=== PATIENT | male | born 1965 | race Caucasian/White ===

== ENCOUNTER → 2019-08-22 | Outpatient (CLI) | payer BC, SELFPAY ==
[2016-05-03 11:46] VITALS: BMI 43.0
[2019-08-22 14:46] LABS: Bacteria 0 SEEN /hpf (None Seen); Red Blood Cells-Urine 0 SEEN /hpf (0-5); Squamous Epithelial Cells - UA 0 SEEN /hpf (0-5)
[2019-08-22 15:03] LABS: Color, Urine Yellow (Yellow); Glucose, Dipstick Normal (Normal); Ketone-Dipstick 5 mg/dl (Negative); Leukocyte Esterase-Dipstick 100 /ul (Negative); Nitrite-Dipstick Negative (Negative); Occult Blood-Urine 10 /ul (Negative); Protein-Dipstick 100 mg/dl (Negative); Urine Bilirubin Dipstick Negative (Negative); Urine Clarity Clear (Clear); Urine Urobilinogen 1 mg/dl (Normal)
[2019-08-22 15:20] LABS: Mucous, Urine RARE /hpf (<or=2+); White Blood Cells 0-5 SEEN /hpf (0-5)
[2019-08-22 15:21] LABS: Hyaline Cast 0-5 SEEN /lpf (0-5)
== END | disposition home or self-care (01) ==
LOC: LABSPEC 14:42
PROVIDERS: Referring Provider Urology; Visit Provider Urology
DX: R31.9 Hematuria, unspecified (principal)
CPT/HCPCS: 81001

== ENCOUNTER 2020-09-16 08:30 | Outpatient (RCR) | payer BC, SELFPAY ==
--- NOTE | 2020-08-23 08:37 | HP.PTEVAL_ITS ---
Patient's Visit Information SUJATHA CARVALHO Jr. is a 55 year old M referred to Physical Therapy by Dr. Sj Aguilar DO with a diagnosis of L5S1 HERNIATED DISC. Date of Evaluation: 08/23/20 Physical Therapist: Brenda Webber PT, Cert MDT - Visit Plan Frequency: 2-3x /Week Duration: 4-6 Weeks Plan: NO OVER HEAD PRESS OR TWISTING EXERCISES. POSTURE CORRECTION/STRENGTHENING, INSTRUCTION IN APPROPRIATE BODY MECHANICS AND ACTIVITY MODIFICATIONS. DLS STARTING WITH A NEUTRAL SPINE PROGRESSING ROM TOLERATED AND SLOWLY WORKING INTO WORK SIMULATION ACTIVITIES. ZIYAD LE ROM, STRETCHING AND STRENGTHENING. HEP INSTRUCTION. - Subjective Work/Leisure: [employer]. [employer]. HAS TO LIFT AND DRAG HOSES. CURRENTLY OFF WORK AND HAS BEEN OFF WORK SINCE MAY 2020. TENTATIVE RETURN TO WORK DATE IS 09/19/20. Disability: NO. Present symptoms: LEFT BUTTOCK PAIN, LEFT THIGH PAIN. NO LE NUMBNESS OR TINGLING. NO RIGHT LE SX'S. MILD LB ACHE. Present since: FIRST OF THE YEAR (2020). Pain Scale: WORST 3/10, LEAST 0/10. Currently: 0/10. Commenced as a result of: WOKE UP WITH SEVERE LEFT BUTTOCK PAIN. Symptoms at onset: L BUTTOCK PAIN. Worse: BENDING, TWISTING. Better: CHANGE OF POSITION. Disturbed sleep: NO. Previous history/Previous treatment: HAS BEEN GOING TO [facility] ABOUT ONCE A MONTH FOR YEARS. MAINLY SELF TREATED EPISODIC LBP FOR YEARS. Treatment this episode: S/P MIRCRODISCECTOMY L5S1 L ON 08/05/20. Coughing/sneezing/straining: NEGATIVE. Gait: NORMAL. Difficulty initiating urinatin: NO. Accidents: NO. Unexplained weight loss: NO. Imaging: LUMBAR MRI PRIOR TO SURGERY SHOWING HERNIATION. PMH/Recent major surgery: L SHLD SX A LONG TIME AGO. - Objective Sitting/Standing Posture: FAIR. Lordosis: NORMAL. Lateral shift: NO. Relevant shift: N/A. Active Correction of posture: Other Observations: INDEP GAIT AND TRANSFERS. Motor deficit: ZIYAD LE STRENGTH 5/5 WITH MMT'ING EXCEPT ZIYAD HIPS: RIGHT 4/5, L 4-/5. Sensory deficit: ZIYAD LE LIGHT TOUCH SENSATION INTACT AND SYMMETRICAL. ROM deficit: TIGHT ZIYAD LE HIP FLEXORS, HS'S AND GASTROC SOLEUS COMPLEX'S L > R. Reflexes: UNABLE TO ELICIT ZIYAD LE DTR'S. Dural Signs: POSITIVE L LE. Lumbar mvmt loss: flex - NIL. ext - NIL. R SG - NIL. L SG - MOD. Core strength: FAIR. Palpation: INCISION LOOKS GOOD WITHOUT ANY SIGNS OF INFECTION. NO ACUTE TENDERNESS. TREATMENT: NEUROMUSCULAR REEDUCATION - RETRAINING OF MVMT AND POSTURE FOR SITTING, LYING AND STANDING ACTIVITIES. INITIATED HEP WITH SUPINE ISO ABDOMINALS, SUPINE ZIYAD LE DURAL STRETCHING, BTB HIP ABD, ISO HIP ADD, BTB MR. - Goals Goal 1:: DECREASE C/O LOW BACK AND L LE SX'S. Goal Time Frame: 4-6 Weeks Goal 2:: IMPROVE LIFTING AND WORK FUNCTION Goal Time Frame: 4-6 Weeks Goal 3:: INSTRUCT IN PROPHYLAXIS Goal Time Frame: 4-6 Weeks - Anticipated Interventions Patient/Client Instruction: Educate patient on: Condition, Plan of Care, Risk Factors, Benefits of Fitness Program For the Purpose of:: To improve self management Therapeutic Exercise to Include: Strength training, Body mechanics, Postural training, Flexibilty training, Neuromotor development, Dynamic Lumbar St abilization For the Purpose of:: To decrease pain, To improve muscle performance and motor function, To increase tolerance to activity/condition/position, To improve ability of physical actions for home/community/work/leisure Thank you for the opportunity to evaluate your patient. For Medicare and Medicare HMO plans, please review the plan of care and approve it. It will need to be FAXED BACK to us at [phone] for Medicare purposes. For Medicare only, by signing this I certify the plan of care. Please let me know if there are questions or concerns regarding this plan of care. Physician Signature: Date:
--- NOTE | 2021-03-16 17:06 | HP.PT.NRP ---
SUJATHA CARVALHO was seen in my office for initial evaluation on 08/23/20. The following Plan of Care was established for this patient: Initial Frequency: 2-3x /Week Initial Duration: 4-6 Weeks Patient/Client Instruction: Educate patient on: Condition, Plan of Care, Risk Factors, Benefits of Fitness Program For the Purpose of:: To improve self management Therapeutic Exercise to Include: Strength training, Body mechanics, Postural training, Flexibilty training, Neuromotor development, Dynamic Lumbar Stabilization For the Purpose of:: To decrease pain, To increase ROM, To improve muscle performance and motor function, To increase tolerance to activity/condition/position, To improve ability of physical actions for home/community/work/leisure This patient was last seen in our office 09/16/20. Pertinent comments regarding their Physical therapy will appear below: This patient has not returned to Physical Therapy and is appropriate to return to MD for further follow-up as needed. At this point I will be discontinuing this patient from physical therapy. I would be happy to see this patient again in the future if found appropriate by the physician. Thank you! Brenda Webber, PT, Cert MDT Balance/Gait/Functional tests - Balance/Special Test Scores Oswestry Low Back Score: 0
== END 2020-09-16 19:00 | disposition home or self-care (01) ==
LOC: PT 08:30
PROVIDERS: PCP Nurse Practitioner Family; Referring Provider Orthopaedic Surgery Orthopaedic Surgery of the Spine; Visit Provider Orthopaedic Surgery Orthopaedic Surgery of the Spine
DX: Z47.89 Encounter for other orthopedic aftercare (principal); M51.26 Other intervertebral disc displacement, lumbar region
CPT/HCPCS: 97110; 97112; 97162

== ENCOUNTER → 2022-01-02 | Outpatient (CLI) | payer BC, SELFPAY ==
[2022-01-02 11:29] LABS: Hematocrit 54.2 % (40-54); Hemoglobin 19.6 g/dL (13.0-16.5); Mean Corp Hgb Conc 36.2 g/dL (32-36); Mean Corpuscular Hgb 33.2 pg (27.0-32.0); Mean Corpuscular Volume 91.9 fL (80-94); Mean Platelet Vol. 8.8 fl (6.2-12.0); Platelet Count 174 K/mm3 (150-450); RBC Distribution Width CV 12.2 % (11.6-14.6); RET-HE 38.2 pg (30-35); Reticulocyte Count 2.61 % (0.5-1.5); White Blood Count 5.3 K/mm3 (4.4-11.0)
[2022-01-02 11:39] LABS: ALB/GLOB Ratio 1.2 RATIO (0.9-2.4); AST(SGOT) 17 U/L (15-37); Alanine Aminotransfer ALT/SGPT 34 U/L (16-61); Alkaline Phosphatase 60 U/L (45-117); Anion Gap 5 (5-15); BUN 17 mg/dL (7-18); BUN/Creat Ratio 13.5 RATIO (10-20); Calcium,Total 8.9 mg/dL (8.5-10.1); Chloride 103 mmol/L (98-107); Cholesterol 122 mg/dL (200); Creatinine, Serum 1.26 mg/dL (0.70-1.30); EST Glomerular Filtration Rate 63 mL/min (>60); Est Glom Filt Rate - Afr Amer 76 mL/min (>60); Globulin 3.2 g/dL (2.2-4.2); Glucose 105 mg/dL (74-106); High Density Lipoprotein 36 mg/dL; Iron 171 ug/dL (65-175); Iron Binding Capacity,Total 288 ug/dL (250-450); PSA,Total- Diagnostic 7.51 ng/mL (0.0-4.0); Potassium 3.6 mmol/L (3.5-5.1); Protein, Total 7.2 g/dL (6.4-8.2); Sodium Level 137 mmol/L (136-145); Triglycerides 128 mg/dL; Very Low Density Lipoprotein 26 mg/dL (5-40)
[2022-01-02 12:33] LABS: Microalbumin,Random Urine 26.2 mg/L (NO RANGE EST.); Microalbumin:Creatinine Ratio 13.4 mg/g CRE (<30 mg/g CRE)
[2022-01-05 13:05] LABS: Pathologist Review Reviewed
== END | disposition home or self-care (01) ==
PROVIDERS: PCP Nurse Practitioner Family; Visit Provider Nurse Practitioner Family
DX: I10 Essential (primary) hypertension (principal); G47.33 Obstructive sleep apnea (adult) (pediatric); E78.5 Hyperlipidemia, unspecified; K21.9 Gastro-esophageal reflux disease without esophagitis; R97.20 Elevated prostate specific antigen [PSA]; E83.119 Hemochromatosis, unspecified
CPT/HCPCS: 36415; 80053; 80061; 82043; 82570; 83540; 83550; 84153; 85027; 85045

== ENCOUNTER → 2022-03-16 | Outpatient (CLI) | payer SELFPAY ==
[2022-03-16 14:52] LABS: PSA,Total- Diagnostic 4.23 ng/mL (0.0-4.0)
== END | disposition home or self-care (01) ==
PROVIDERS: PCP Nurse Practitioner Family; Referring Provider Registered Nurse; Visit Provider Registered Nurse
DX: R97.20 Elevated prostate specific antigen [PSA] (principal)
CPT/HCPCS: 36415; 84153

== ENCOUNTER → 2023-01-29 | Outpatient (CLI) | payer BC, SELFPAY ==
--- NOTE | 2023-01-29 13:32 | MRI_ITS ---
MR Prostate WO/W Contrast 01/29/2023 1:42 PM COMPARISON: None CLINICAL HISTORY: 57-year-old man with elevated PSA of 4.23 TECHNIQUE: Standard prostate MR protocol was used before and after administration of 23 cc of IV Clariscan. FINDINGS: Prostate volume: 93 cc PSA density: 0.05 ng/ml2 Length of membranous urethra: 18 mm Post-biopsy hemorrhage: None Multiparametric MR evaluation: Heterogeneous appearance of the central gland is consistent with benign prostatic hyperplasia. Heterogeneous diffuse T2 hypointensity of the peripheral gland and seminal vesicles likely representing prostatitis and seminal vesiculitis. No suspicious T2 hypointense or diffusion restricting mass. Capsular margin and neurovascular bundle: Normal Seminal vesicles: Normal Lymph nodes: No lymphadenopathy in the field of view. Bones: No suspicious lesions in the field of view. MRI/Pelvis W/WO Contrast IMPRESSION: PI-RADS 2: -Benign prostatic hyperplasia. -Prostatitis with seminal vesiculitis. -No suspicious T2 hypointense or diffusion restricting mass. Electronically Signed: Matias Waldron MD at 23:49 EDT ,
== END | disposition home or self-care (01) ==
PROVIDERS: PCP Nurse Practitioner Family; Referring Provider Urology; Visit Provider Urology
DX: R97.20 Elevated prostate specific antigen [PSA] (principal)
CPT/HCPCS: 72197; A9575

== ENCOUNTER → 2024-04-06 | Outpatient (CLI) | payer BC, SELFPAY ==
[2024-04-07 13:08] LABS: PSA, Free % 19.3 % (.)
== END | disposition home or self-care (01) ==
LOC: LAB 08:53
PROVIDERS: PCP Nurse Practitioner Family; Referring Provider Nurse Practitioner; Visit Provider Nurse Practitioner
DX: R97.20 Elevated prostate specific antigen [PSA] (principal)
CPT/HCPCS: 36415; 84153; 84154